=== PATIENT | male | born 1940 | race Caucasian/White ===

== ENCOUNTER 2017-01-07 11:29 | Emergency (ER) | payer OTHER ==
[~2017-01-07] VITALS: Ht 180.3 cm; Wt 107.5 kg
--- NOTE | ~2017-01-07 | CT52 ---
[facility] A Service of [facility] & [facility] RADIOLOGY TEXT RESULTS PATIENT: CORINA ANNE LOCATION: [facility] : 39 UNIT #: [id number] AGE: [address]: Cali Tolentino MD SEX: M ORDER DR: [id number] [facility] [address]. [place], [place] [address] [id number] MR#: [id number] Acc #: [id number] NAME: CORINA ANNE : 1940 SEX: M STUDY DATE/TIME: 01/07/2017 12:39 UNIT: [facility] ROOM: STUDY DESCRIPTION: CT Cervical Spine Wo Cont Attending Physician: Cali Tolentino M.D. Ordering Physician: Cali Tolentino M.D. Primary Care Physician: Paulie Pop M.D. MEDICAL IMAGING REPORT This report is preliminary unless electronic signature is present EXAM CT cervical spine without IV contrast COMPARISON Cervical spine radiographs dated June 12, 2016 as well as cervical spine MRI dated June 17, 2016. INDICATIONS 76-year-old male with posterior neck pain for 4 days radiating into both sides of the neck for 4 days. No known trauma. FINDINGS This CT exam was performed with one or more of the following radiation dose reduction techniques: Automatic exposure control, adjustment of mA and/or kV according to patient size, and iterative reconstruction. Axial CT imaging of the cervical spine was performed. Coronal and sagittal reformats were constructed. Lack of IV contrast limits evaluation of soft tissues and vasculature. There is a large 2.3 cm low-density lesion in the right lobe of the thyroid gland with questionable 1.1 cm low-density lesion in the left lobe of the thyroid gland. The thyroid is not well evaluated on comparison MRI. There are calcifications in the cervical carotid arteries bilaterally but no adenopathy. No significant subcutaneous hematoma. Imaged airway is widely patent. There is bulky degenerative facet disease bilaterally throughout the cervical spine. There is faint calcification of the posterior longitudinal ligament of the cervical spine. There is minimal, grade I anterolisthesis of C4 on C5 and C5 on C6. There appears to be chronic erosive change versus degenerative subchondral cystic change at the anterior margin of the dens with adjacent anterior heterotopic calcification within the soft tissues. No acute fractures. Disc height loss at C6-C7. There is degenerative endplate change at the superior aspect of C7 and at T1-T2. There is multilevel mild uncinate hypertrophy STS. [facility] A Service of [facility] & [facility] RADIOLOGY TEXT RESULTS PATIENT: CORINA ANNE LOCATION: [facility] : 39 UNIT #: [id number] AGE: [address]: Cali Tolentino MD SEX: M ORDER DR: of the cervical spine. No acute findings in the pulmonary apices. IMPRESSION 1. No acute fracture of the cervical spine. There is mild multilevel degenerative anterolisthesis at multiple levels as described. 2. There is faint calcification of the posterior longitudinal ligament, a finding which can be seen in DISH or possibly ankylosing spondylitis. There are also soft tissue calcifications near the dens with scalloped lucency in the anterior aspect of the dens, which is likely stable from May 2016. These could reflect sequelae of a process such as pseudogout. 3. Bilateral carotid artery calcifications in the neck. 4. A 2.3 cm right lobe thyroid nodule. Questionable separate nodule in the left lobe of the thyroid gland. Outpatient thyroid ultrasound is recommended for further characterization. 5. No acute fracture of the cervical spine. 6. No significant bony neural foraminal narrowing is seen. Dictated by... Alec Friedman M.D. THIS IS AN ELECTRONICALLY VERIFIED REPORT Alec Friedman M.D. at 01/14/2017 4:10 PM VAMSI/justice TD: 01/07/2017 21:23 JOB #: [id number] MEDICAL IMAGING REPORT Page 1 of 1 COPY
== END 2017-01-07 14:30 | disposition home or self-care (01) ==
LOC: CED 11:29
DX: S16.1XXA Strain of muscle, fascia and tendon at neck level, initial encounter (principal); I10 Essential (primary) hypertension; M54.12 Radiculopathy, cervical region; X58.XXXA Exposure to other specified factors, initial encounter
CPT/HCPCS: 72125; 96374; 99284; J1885

== ENCOUNTER → 2017-01-22 | Outpatient (CLI) | payer OTHER ==
--- NOTE | ~2017-01-22 | US128 ---
[id number] [facility] [address] [place], [place] [address] [id number] O MR#: [id number] Acc #: [id number] NAME: CORINA ANNE : 1940 SEX: M STUDY DATE/TIME: 01/22/2017 13:25 UNIT: [facility] ROOM: STUDY DESCRIPTION: Thyroid Attending Physician: Paulie Pop M.D. Referring Physician: Paulie Pop M.D. Ordering Physician: Paulie Pop M.D. Primary Care Physician: Paulie Pop M.D. MEDICAL IMAGING REPORT This report is preliminary unless electronic signature is present EXAM Thyroid ultrasound 01/22/2017 INDICATION Follow up thyroid nodules seen on CT of the cervical spine dated 01/07/2017. FINDINGS Sonographic evaluation is performed of the thyroid gland in multiple planes. Comparison made with cervical CT of 01/07/2017. No comparison thyroid ultrasound. Right lobe measures 2.1 x 3.9 x 1.7 cm. Left lobe measures 1.4 x 3.6 x 1.6 cm. The isthmus is about 3 mm in thickness. Within the right thyroid lobe, there is a hypoechoic nodule measuring 1.9 x 1.2 x 1.7 cm. On the left side, there is a hypoechoic nodule measuring 1.1 x 1.0 x 0.8 cm. This is either in the lateral aspect of the left lobe or just behind the left lobe as a separate nodule, potentially even a parathyroid nodule. Suggest correlation with laboratory data. I would recommend ultrasound-guided fine-needle aspiration of the dominant right thyroid nodule. The nodule on the left side could be followed or aspirated as well depending on clinical need. No other nodules are seen. IMPRESSION 1. Dominant right side thyroid nodule measuring 1.9 cm. Ultrasound-guided fine-needle aspiration is recommended. 2. Hypoechoic nodule on the left may be within the lateral aspect of the gland or separate from it just behind it, potentially reflecting a parathyroid adenoma. Correlation with laboratory data is suggested. This could be potentially aspirated as well or followed with surveillance imaging. Dictated by... Angel Helton Jr., M.D. THIS IS AN ELECTRONICALLY VERIFIED REPORT Angel Helton Jr., M.D. at 01/24/2017 4:33 PM RIGO/angel TD: 01/23/2017 13:10 JOB #: [id number] MEDICAL IMAGING REPORT Page 1 of 1 COPY
== END | disposition home or self-care (01) ==
LOC: CGUS 13:01
DX: E07.89 Other specified disorders of thyroid (principal); E04.2 Nontoxic multinodular goiter
CPT/HCPCS: 76536

== ENCOUNTER → 2017-03-01 | Outpatient (CLI) | payer OTHER ==
--- NOTE | ~2017-03-01 | XA230 ---
[facility] A Service of [facility] & [facility] RADIOLOGY TEXT RESULTS PATIENT: CORINA ANNE [facility]ATION: [facility] : 39 UNIT #: [id number] AGE: [address]: Paulie Pop MD SEX: M ORDER DR: [id number] [id number] [facility]. [place], [place] [address] [id number] O MR#: [id number] Acc #: [id number] NAME: CORINA ANNE : 1940 SEX: M STUDY DATE/TIME: 03/01/2017 13:25 UNIT: [facility] ROOM: STUDY DESCRIPTION: XA FNA Attending Physician: Paulie Pop M.D. Referring Physician: Paulie Pop M.D. Ordering Physician: Paulie Pop M.D. Primary Care Physician: Paulie Pop M.D. MEDICAL IMAGING REPORT This report is preliminary unless electronic signature is present EXAM Thyroid FNA INDICATIONS Mr. Anne is a 76-year-old man who underwent thyroid ultrasound on January 23, 2017. At that point, he was noted to have a solid nodule within the right lobe of the thyroid gland measuring up to 1.9 x 1.2 x 1.7 cm, and within the left lobe there was potentially an additional nodule located posterior and inferior to the thyroid gland which was potentially a parathyroid adenoma. It measured about 1.1 cm in transverse dimensions and about 1 cm in length. PROCEDURE The risks, benefits, and alternatives to the procedure were explained to the patient, and signed, informed consent was obtained. He was placed supine on the angiographic table and was prepped and draped in the usual sterile fashion. The ultrasound probe was covered with a sterile probe cover and sterile gel was applied. I performed an initial thyroid ultrasound and really was unable to see the previously identified lesion within the left lobe of the thyroid gland, and again I wonder if it is actually located separately from the thyroid gland, rather than being part of it. Part of the inability to visualize may be related to equipment. Again, I was unable to definitively identify it on the preliminary ultrasound. The second nodule, which was located within the right lobe of the thyroid gland, was clearly visualized. Skin and subcutaneous tissues were anesthetized with buffered lidocaine and a total of 3 separate passes were made into the lesion under direct sterile sonographic guidance using 25-gauge needles. Specimens were given to a cardiac cath lab radiology technologist, who confirmed an adequate specimen had been obtained. IMPRESSION 1. Technically successful right thyroid FNA as noted above. Ultrasound was used during the procedure and permanent images were STS. [facility] A Service of [facility] RADIOLOGY TEXT RESULTS PATIENT: CORINA ANNE LOCATION: [facility] : 39 UNIT #: [id number] AGE: [address]: Paulie Pop MD SEX: M ORDER DR: cindi. 2. Patient on the prior ultrasound had a nodule which was seen potentially inferior and posterior to the left lobe of the thyroid gland. I really did not clearly see this on today's examination, perhaps because it is actually separate from the thyroid gland or perhaps related to equipment. In any case, at only about 1 cm in size, it really does not meet size criteria for percutaneous sampling; however, I would suggest continued sonographic followup in 6 months. Dictated by... Sara Villanueva M.D. THIS IS AN ELECTRONICALLY VERIFIED REPORT Sara Villanueva M.D. at 03/02/2017 5:58 PM AFF/psc TD: 03/02/2017 11:39 JOB #: [id number] MEDICAL IMAGING REPORT Page 1 of 1 COPY
== END | disposition home or self-care (01) ==
LOC: CIVR 12:15
DX: E04.1 Nontoxic single thyroid nodule (principal); E07.89 Other specified disorders of thyroid
CPT/HCPCS: 76942; 88173; 88305